=== PATIENT | male | born 2005 | race Caucasian/White ===

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

== ENCOUNTER 2023-11-24 02:50 | Outpatient (CLI) | payer MEDICAID, SELFPAY ==
--- NOTE | 2023-11-24 15:28 | TELEFU_ITS ---
Date of service: 11/24/23 Time of Service: 14:30 Nutrition Note NOTE: Unfortunately this appointment came very late after referral due to a change in staff and a referral process gap that was addressed 2 months ago - referral came November of 2022. After contacting Melchor and his mother Rita to offer the appointment nonetheless, they accepted and came in together for nutrition visit today. Original referral was for obestiy, steatosis of liver. Melchor is very proud to update that he has lost a lot of weight with lifestyle and diet improvements and was 251 pounds at his annual appt last week. This is about a 48 pound weight loss from June of 2022 when he was 299pounds. His m other updates that fatty liver no longer a concern as well. I congratulated him on this and asked how - main change was reducing added sugar, especially targeting drinks. We did do some talking today about his goal to achieve ~200lbs. With his measured height today at 67 I think this is a realistic and achievable goal and shared with Melchor some general numbers estimated current energy needs: 2783 ([id number]) and recommended ~2200 for continued goal of weight loss. suggested ~20%kcals from protein (110g). Reviewed tips such as eating more during morning and daylight hours and tapering at night with avoiding snacks and food in general after 7pm Suggested targeting some scheduled exercise, with emphasis on strength training to help with supporting a healthier metabolism. Rita and Melchor have my card to contact with any questions or need for support for Brendan continued goal to lose wwight and eat healthier. Time Spent in Nutritional Counseling and Treatment: 25 minutes
== END 2023-11-24 02:51 | disposition home or self-care (01) ==
LOC: DS 02:50
PROVIDERS: PCP Nurse Practitioner Family; Visit Provider Dietitian, Registered
DX: E66.8 Other obesity (principal); Z71.3 Dietary counseling and surveillance
CPT/HCPCS: 00123; 97802

== ENCOUNTER 2024-01-10 23:26 | Emergency (ER) | payer MEDICAID, SELFPAY ==
--- NOTE | 2024-01-10 23:29 | ED.GENADUL_ITS ---
Discharge Plan Disposition Patient Disposition: Home Condition: Good Discharge Details Clinical Impression: Nausea, vomiting and diarrhea Primary Care Provider: Cary Simons ED Provider: Gibson Solomon Meds and New Rx's Prescriptions: New Ondansetron Odt, 3 Tabs/Btl [Zofran Odt, 3 Tabs/Btl] 4 mg PO Q8H PRN (Reason: faina) Qty: 3 0RF Continued melatonin 5 mg tablet 5 mg PO HS PRN Patient Comments: TAKE ONE TO TWO TABLETS BY MOUTH AT BEDTIME NEEDED FOR INSOMNIA cholecalciferol (vitamin D3) [Vitamin D3] 50 mcg (2,000 unit) tablet 50 mcg PO DAILY Patient Comments: TAKE 1 TABLET BY MOUTH ONCE A DAY citalopram 20 mg tablet 20 mg PO DAILY Patient Comments: TAKE 1 TABLET BY MOUTH EVERY DAY omeprazole 20 mg capsule,delayed release(DR/EC) 20 mg PO DAILY Patient Comments: TAKE 1 CAPSULE BY MOUTH EVERY DAY Discharge Instructions Instructions: Nausea and Vomiting, Adult ED Additional Instructions: You were seen in the ED for onset of vomiting and diarrhea. Your exam and laboratory studies are reassuring. You were treated with IV fluids and medication to help with nausea and vomiting. You may continue ondansetron if needed for recurrent nausea/vomiting. Would maintain a clear liquid diet for at least the next 12 hours and advance to bland slowly. Follow-up with primary care if not improving. Return to ED for fever, persistent vomiting, abdominal pain, bloody diarrhea. Referrals: Cary Simons [Primary Care Provider] - [facility] General Mode of arrival: ambulatory . Date/Time Provider Initiated Documentation: 01/10/24 23:29 . Limitations to Documentation: no limitations . Information obtained by: patient . HPI Narrative: Patient presents to ED with onset of vomiting and diarrhea this evening after dinner. Had 2 large bouts of emesis at home. Has abdominal pain while vomiting but not otherwise. He denies any fever, cough, chest pain, shortness of breath, back pain, hematemesis or hematochezia. Related Data Home Medications Medication Instructions Recorded Confirmed omeprazole 20 mg capsule,delayed 20 mg PO DAILY 07/04/22 01/11/24 release Ondansetron ODT, 3 tabs/btl 4 mg PO Q8H PRN faina #3 caps 01/11/24 [Zofran ODT, 3 tabs/btl] cholecalciferol (vitamin D3) 50 50 mcg PO DAILY 01/11/24 01/11/24 mcg (2,000 unit) tablet (Vitamin D3) citalopram 20 mg tablet 20 mg PO DAILY 01/11/24 01/11/24 melatonin 5 mg tablet 5 mg PO HS PRN 01/11/24 01/11/24 Previous Rx's Medication Instructions Recorded Ondansetron ODT, 3 tabs/btl 4 mg PO Q8H PRN faina #3 caps 01/11/24 [Zofran ODT, 3 tabs/btl] Allergies Allergy/AdvReac Type Severity Reaction Status Date / Time No Known Allergies Allergy Unverified 01/11/24 00:16 General DWAINE: 3 Review of Systems Narrative: Per HPI Exam Narrative Exam Narrative: Const: WDWN male in NAD. VS per triage. HEENT: NC/AT. Normal facial exam. Neck: Supple. Trachea midline. Lungs: Normal respiratory effort. Cor: RRR. Good radial pulses. GI: Soft/ND/NT. Neuro: A+O x 3. Normal speech, mentation, gait. Cranial nerves II - XII grossly intact. No gross motor or sensory deficit. Ext: No C/C/E. Medical Decision Making Patient presenting with vomiting and diarrhea onset after eating dinner tonight. No abdominal pain. Abdomen is benign. Actively vomiting here. IV established and fluids, ondansetron ordered. Laboratory studies sent. Patient's laboratory studies with a white count of 14.8. Chemistries unremarkable, very minimal anion gap. Liver function and lipase normal. Patient continued to vomit despite ondansetron. EKG was obtained and is normal with normal QT interval. 2.5 of droperidol given. Patient with relief of nausea, no further vomiting. Continues to have no abdominal pain. Will plan discharge home on clear liquid diet for the next 12 hours, advance to bland as tolerated. Given 3 ondansetron to go for recurrent nausea vomiting at home. Follow-up with primary care if not doing better. Return precautions provided. Lab Data Lab results reviewed: Yes I reviewed the patient's lab results. Lab results narrative: See MDM ECG Data Attestation: I personally reviewed and interpreted this ECG (s) as follows: Interpretation: Normal PFSH All Active Problems (Updated 01/11/24 @ 01:59 by Gibson Solomon MD) Nausea, vomiting and diarrhea (Acute) Medical History Depression GERD (gastroesophageal reflux disease) Surgical History No significant past surgical history Social History Smoking/Tobacco Use Status: Never Smoking risk assessment performed?: Yes Alcohol Intake: never Drug use: Never Substance use type: does not use Housing: house Do you feel safe at home: Yes Do you feel safe in your relationship?: Yes Additional Social history: lives with mother at home
[2024-01-10 23:30] VITALS: BP 122/62; PULSE 84; RESP 16; TEMP 37; O2SAT 100
[2024-01-10 23:34] VITALS: BP 122/62; PULSE 78; RESP 19; TEMP 37; O2SAT 100
[2024-01-10] MEDS: Ondansetron 4 MG/2 ML VIAL (23:38)
[2024-01-10 23:52] LABS: Abs Immature Grans 0.05 10^3/uL (0.0-0.06); Absolute Basophil Count 0.06 10^3/uL (0.0-0.2); Absolute Eosinophil Count 0.07 10^3/uL (0.0-0.7); Absolute Lymphocyte Count 1.11 10^3/uL (1.2-3.4); Absolute Monocyte Count 0.94 10^3/uL (0.1-0.8); Absolute Neutrophil Count 12.53 10^3/uL (1.2-6.7); Basophils % 0.4 %; Eosinophils % 0.5 %; HCT 50.1 % (40.0-50.0); HGB 16.5 g/dL (13.5-17.5); Immature Grans % 0.3 %; Lymphocytes % 7.5 %; MCH 28.1 pg (27.0-33.0); MCHC 32.9 % (32.0-36.0); MCV 85 fL (80-95); MPV 10.5 fL (8.0-11.0); Monocytes % 6.4 %; Neutrophils % 84.9 %; Platelet Count 349 10^3/uL (130-400); RBC 5.87 10^6/uL (4.36-5.78); RDW 11.9 % (11.8-14.1); RDW-SD 37.2 fL; WBC 14.76 10^3/uL (4.4-10.8)
[2024-01-11] VITALS (21 sets, daily range): BP systolic 127–155; BP diastolic 39–78; PULSE 68–110; RESP 16–32; O2SAT 96–100
[2024-01-11 00:06] LABS: ALT 42 U/L (16-63); AST 19 U/L (15-37); Albumin 4.4 g/dL (3.4-5.0); Alkaline Phosphatase 94 U/L (46-116); Anion Gap 13.8 mmol/L (3-11); BUN 12 mg/dL (7-18); Bilirubin, Total 0.64 mg/dL (0.2-1.0); CO2 24.2 mmol/L (21.0-32.0); CREATININE 1.1 mg/dL (0.70-1.30); Chloride 104 mmol/L (98-107); Estimated GFR 98.56 (mL/min/1.73m2); Glucose 128 mg/dL (74-106); Lipase 19 U/L (16-77); Potassium 3.9 mmol/L (3.5-5.1); Sodium 142 mmol/L (136-145); Total Protein 7.9 g/dL (6.4-8.2)
--- NOTE | 2024-01-11 00:15 | RT.EKG_ITS ---
APPROVED REPORT Exam: Resting ECG Reason for Exam: QT monitoring Patient Location: E HR:69 bpm ECG Measurements Heart Rate 69 AXIS NE 150 P 17 QRSd 91 QRS 65 QT 397 T 45 QTc 425 Conclusion Sinus rhythm...normal P axis, V-rate 60- 99 Normal Intervals/[place] Normal Electrocardiogram
[2024-01-11] MEDS: Lactated Ringers 1,000 ML 1000 ML IV (00:20)
[2024-01-11] MEDS: Droperidol 5 MG/2 ML VIAL 2.5 MG IVP (00:53)
== END 2024-01-11 02:24 | disposition home or self-care (01) ==
LOC: ER 01-11 02:23
PROVIDERS: Emergency Provider Emergency Medicine; PCP Family Medicine
DX: R11.2 Nausea with vomiting, unspecified (principal); R19.7 Diarrhea, unspecified
CPT/HCPCS: 80053; 83690; 93005; 96361; 96374; 96375; 99284; 85025; 93010; 99283; J1790; J2405

== ENCOUNTER 2024-06-21 14:51 | Outpatient (CLI) | payer MEDICAID, SELFPAY | END 2024-06-21 14:52 | disposition home or self-care (01) | PROVIDERS: PCP Family Medicine; Visit Provider Family Medicine | DX: R07.9 Chest pain, unspecified (principal) | CPT/HCPCS: 93246 ==

== ENCOUNTER 2024-07-16 00:10 | Emergency (ER) | payer MEDICAID, SELFPAY ==
--- NOTE | 2024-07-16 00:11 | ED.GENADUL_ITS ---
Discharge Plan Disposition Patient Disposition: Home Condition: Good Discharge Details Clinical Impression: Folliculitis Primary Care Provider: Lisa Caldwell V ED Provider: Gibson Solomon [place] Meds and New Rx's Prescriptions: Continued melatonin 5 mg tablet 5 mg PO HS PRN Patient Comments: TAKE ONE TO TWO TABLETS BY MOUTH AT BEDTIME NEEDED FOR INSOMNIA cholecalciferol (vitamin D3) [Vitamin D3] 50 mcg (2,000 unit) tablet 50 mcg PO DAILY Patient Comments: TAKE 1 TABLET BY MOUTH ONCE A DAY lamotrigine 25 mg tablet 25 mg PO QHS Patient Comments: TAKE 1 TABLET BY MOUTH EVERY DAY AT BEDTIME FOR 14 DAYS FOR MOOD guanfacine 1 mg tablet extended release 24 hr 2 mg PO DAILY omeprazole 20 mg capsule,delayed release(DR/EC) 20 mg PO DAILY Patient Comments: TAKE 1 CAPSULE BY MOUTH EVERY DAY Discharge Instructions Additional Instructions: This is most consistent with folliculitis related to chest hairs being shaved and wearing heart monitor. Should resolve pretty much on its own. May wish to use a soap like safeguard which is antibacterial for the next week or so. This rash does not appear to be related to any type of allergic or adverse reaction to the new medications. Follow-up with primary care next week as needed. Return to ED with concerns. Referrals: Lisa Caldwell MD [Primary Care Provider] - [facility] General Mode of arrival: ambulatory . Date/Time Provider Initiated Documentation: 07/16/24 00:10 . Limitations to Documentation: no limitations . Information obtained by: patient and RN notes reviewed . HPI Narrative: Patient presents to ED after noticing a rash on his chest. He and his mother were concerned as he had just been started on lamotrigine and were warned of SJS. Patient denies any pruritus. There is no rash elsewhere. He has no other complaints. He has recently had his chest shaved and was wearing a heart monitor. Related Data Home Medications ?Medication ?Instructions ?Recorded ?Confirmed omeprazole 20 mg capsule,delayed 20 mg PO DAILY 07/04/22 07/16/24 release cholecalciferol (vitamin D3) 50 50 mcg PO DAILY 01/11/24 07/16/24 mcg (2,000 unit) tablet (Vitamin D3) melatonin 5 mg tablet 5 mg PO HS PRN 01/11/24 07/16/24 guanfacine 1 mg tablet,extended 2 mg PO DAILY 07/16/24 07/16/24 release 24 hr lamotrigine 25 mg tablet 25 mg PO QHS 07/16/24 07/16/24 Allergies Allergy/AdvReac Type Severity Reaction Status Date / Time No Known Allergies Allergy Unverified 01/11/24 00:16 General DWAINE: 3 Review of Systems Narrative: Per HPI Exam Narrative Exam Narrative: Const: WDWN male in NAD. VS per triage. HEENT: NC/AT. Normal facial exam. Eyes: Normal lids and conjunctiva. Neck: Supple. Trachea midline. Lungs: Normal respiratory effort. Neuro: A+O x 3. Normal speech, mentation, gait. Cranial nerves II - XII grossly intact. No gross motor or sensory deficit. Ext: No C/C/E. Skin: Multiple small areas of erythema, some with associated whiteheads involving previously shaved area of chest and under his neck, below his wallace. Medical Decision Making Patient's rash on his chest and neck is consistent with folliculitis likely from having his chest shaved recently, with hair growing back currently. This is not appear to be allergic reaction or adverse reaction to the lamotrigine. No evidence of SJS. Patient reassured. Discharged home to follow-up with primary care as needed. Return with concerns. [facility] All Active Problems (Updated 07/16/24 @ 00:26 by Gibson Solomon MD) Folliculitis (Acute) Medical History Depression GERD (gastroesophageal reflux disease) Surgical History No significant past surgical history Social History Smoking/Tobacco Use Status: Never Smoking risk assessment performed?: Yes Alcohol Intake: never Drug use: Never Substance use type: does not use Housing: house Do you feel safe at home: Yes Do you feel safe in your relationship?: Yes Additional Social history: lives with mother at home
[2024-07-16 00:15] VITALS: BP 150/67; PULSE 54; RESP 21; TEMP 36.6; O2SAT 97
== END 2024-07-16 00:34 | disposition home or self-care (01) ==
PROVIDERS: Emergency Provider Emergency Medicine; PCP Family Medicine
DX: L73.9 Follicular disorder, unspecified (principal)
CPT/HCPCS: 99283

== ENCOUNTER 2024-07-18 12:59 | Outpatient (CLI) | payer MEDICAID, SELFPAY ==
--- NOTE | 2024-07-18 13:03 | W.CARDEVENT ---
Date of service: 07/18/24 Time of Service: 13:03 Cardiac Event Recorder Referring Provider:: Lisa Caldwell Indications:: Other chest pain Cardiac Event Note: This is a cardiac event monitor. Patient was monitored for 14 days and. Sinus rhythm was present throughout with an average heart rate of 69. Minimum was 38, maximum 191 There are very very rare isolated ventricular ectopic beats. There were very rare isolated atrial premature beats. There was no atrial fibrillation, no high-grade AV block, no pauses greater than seconds. Reported symptoms correlated to sinus rhythm, with heart rates ranging from 55-1 09
== END 2024-07-18 13:00 | disposition home or self-care (01) ==
LOC: CARDOPNVT 12:59
PROVIDERS: PCP Family Medicine; Visit Provider Internal Medicine Cardiovascular Disease
DX: R07.89 Other chest pain (principal)